=== PATIENT | male | born 1950 | race Caucasian/White ===

== ENCOUNTER → 2018-04-24 09:40 | Outpatient (CLI) | payer OTHER, MEDICARE, SELFPAY ==
[2018-04-24 10:34] LABS: Hematocrit 35.1 % (41-53)
[2018-04-24 12:36] LABS: 585 Gram Check PASS; Dizziness NO; Postdiastolic BP 81; Postsystolic BP 135; Prediastolic 83; Presystolic 140; Pulse 99; Site of phlebotomy RIGHT FOREARM; Swelling NO; Therapeutic Phleb Comment NO COMMENT; Zero Check Sebra Scale PASS
== END ==
PROVIDERS: PCP Internal Medicine; Visit Provider Internal Medicine
DX: E83.118 Other hemochromatosis (principal); D56.1 Beta thalassemia
CPT/HCPCS: 36415; 82728; 85014; 99195

== ENCOUNTER → 2018-05-27 09:49 | Outpatient (CLI) | payer OTHER, MEDICARE, SELFPAY ==
[2018-05-27 10:06] LABS: Hematocrit 35.9 % (41-53)
[2018-05-27 12:24] LABS: 585 Gram Check PASS; Amount Collected in g 205mL; Dizziness NO; Postdiastolic BP 84; Postsystolic BP 129; Prediastolic 78; Presystolic 134; Pulse 92; Site of phlebotomy LEFT FOREARM; Swelling NO; Therapeutic Phleb Comment NO COMMENT; Zero Check Sebra Scale PASS
== END ==
PROVIDERS: PCP Internal Medicine; Visit Provider Internal Medicine
DX: D56.1 Beta thalassemia (principal)
CPT/HCPCS: 36415; 82728; 85014; 99195

== ENCOUNTER → 2018-06-24 09:54 | Outpatient (CLI) | payer OTHER, MEDICARE, SELFPAY ==
[2018-06-24 10:17] LABS: Hematocrit 36.2 % (41-53)
[2018-06-24 12:40] LABS: 585 Gram Check PASS; Dizziness NO; Postdiastolic BP 81; Postsystolic BP 131; Prediastolic 82; Presystolic 132; Pulse 79; Site of phlebotomy RIGHT FOREARM; Swelling NO; Therapeutic Phleb Comment NO COMMENT; Zero Check Sebra Scale PASS
== END ==
PROVIDERS: PCP Internal Medicine; Visit Provider Internal Medicine
DX: E83.118 Other hemochromatosis (principal); F32.9 Major depressive disorder, single episode, unspecified; T86.5 Complications of stem cell transplant; C81.98 Hodgkin lymphoma, unspecified, lymph nodes of multiple sites; B20 Human immunodeficiency virus [HIV] disease; F33.0 Major depressive disorder, recurrent, mild; Z72.0 Tobacco use
CPT/HCPCS: 36415; 82728; 85014; 99195

== ENCOUNTER → 2018-07-08 09:50 | Outpatient (CLI) | payer OTHER, MEDICARE, SELFPAY ==
[2018-07-08 10:08] LABS: Hematocrit 36.7 % (41-53)
[2018-07-08 11:46] LABS: 585 Gram Check PASS; Amount Collected in g 220mL; Dizziness NO; Postdiastolic BP 87; Postsystolic BP 135; Prediastolic 80; Presystolic 143; Pulse 87; Site of phlebotomy RIGHT ARM; Swelling NO; Therapeutic Phleb Comment NO COMMENT; Zero Check Sebra Scale PASS
== END ==
PROVIDERS: PCP Internal Medicine; Visit Provider Internal Medicine
DX: E83.111 Hemochromatosis due to repeated red blood cell transfusions (principal)
CPT/HCPCS: 36415; 82728; 85014; 99195

== ENCOUNTER → 2018-07-23 09:39 | Outpatient (CLI) | payer OTHER, MEDICARE, SELFPAY ==
[2018-07-23 10:11] LABS: Hematocrit 35.7 % (41-53)
[2018-07-23 10:49] LABS: 585 Gram Check PASS; Dizziness NO; Postdiastolic BP 73; Postsystolic BP 108; Prediastolic 72; Presystolic 108; Pulse 96; Site of phlebotomy RIGHT FOREARM; Swelling NO; Therapeutic Phleb Comment NO COMMENT; Zero Check Sebra Scale PASS
== END ==
PROVIDERS: PCP Internal Medicine; Visit Provider Internal Medicine
DX: E83.19 Other disorders of iron metabolism (principal)
CPT/HCPCS: 36415; 82728; 85014; 99195

== ENCOUNTER → 2018-08-06 12:53 | Outpatient (CLI) | payer OTHER, SELFPAY ==
[2018-08-06 13:15] LABS: Hematocrit 33.1 % (41-53)
[2018-08-06 14:02] LABS: 585 Gram Check PASS; Dizziness NO; Postdiastolic BP 71; Postsystolic BP 112; Prediastolic 71; Presystolic 110; Pulse 94; Site of phlebotomy RIGHT FOREARM; Swelling NO; Therapeutic Phleb Comment NO COMMENT; Zero Check Sebra Scale PASS
== END ==
PROVIDERS: PCP Internal Medicine; Visit Provider Internal Medicine
DX: F32.9 Major depressive disorder, single episode, unspecified (principal); E83.118 Other hemochromatosis; T86.5 Complications of stem cell transplant; C81.98 Hodgkin lymphoma, unspecified, lymph nodes of multiple sites; B20 Human immunodeficiency virus [HIV] disease; F33.0 Major depressive disorder, recurrent, mild; Z72.0 Tobacco use
CPT/HCPCS: 36415; 82728; 85014; 99195

== ENCOUNTER → 2018-08-20 09:45 | Outpatient (CLI) | payer OTHER, SELFPAY ==
[2018-08-20 10:24] LABS: Hematocrit 34.2 % (41-53)
[2018-08-20 11:05] LABS: 585 Gram Check PASS; Prediastolic 75; Presystolic 110; Pulse 96; Site of phlebotomy RIGHT FOREARM; Zero Check Sebra Scale PASS
[2018-08-20 11:06] LABS: Dizziness NO; Postdiastolic BP 76; Postsystolic BP 119; Swelling NO; Therapeutic Phleb Comment NO COMMENT
== END ==
PROVIDERS: PCP Internal Medicine; Visit Provider Internal Medicine
DX: D56.1 Beta thalassemia (principal)
CPT/HCPCS: 36415; 82728; 85014; 99195

== ENCOUNTER → 2018-09-03 12:40 | Outpatient (CLI) | payer OTHER, SELFPAY ==
[2018-09-03 13:17] LABS: Hematocrit 32.9 % (41-53)
[2018-09-03 13:45] LABS: 585 Gram Check PASS; Dizziness NO; Postdiastolic BP 79; Postsystolic BP 126; Prediastolic 78; Presystolic 127; Pulse 77; Site of phlebotomy RIGHT FOREARM; Swelling NO; Therapeutic Phleb Comment NO COMMENT; Zero Check Sebra Scale PASS
== END ==
PROVIDERS: PCP Internal Medicine; Visit Provider Internal Medicine
DX: D56.1 Beta thalassemia (principal)
CPT/HCPCS: 36415; 82728; 85014; 99195

== ENCOUNTER → 2018-09-17 12:41 | Outpatient (CLI) | payer OTHER, MEDICARE, SELFPAY ==
[2018-09-17 13:43] LABS: 585 Gram Check PASS; Zero Check Sebra Scale PASS
[2018-09-17 13:44] LABS: Dizziness NO; Postdiastolic BP 95; Postsystolic BP 135; Prediastolic 79; Presystolic 132; Pulse 80; Site of phlebotomy RIGHT FOREARM; Swelling NO; Therapeutic Phleb Comment NO COMMENT
== END ==
PROVIDERS: PCP Internal Medicine; Visit Provider Internal Medicine
DX: Z51.81 Encounter for therapeutic drug level monitoring (principal)
CPT/HCPCS: 36415; 82728; 85014; 99195

== ENCOUNTER → 2018-10-08 12:49 | Outpatient (CLI) | payer OTHER, MEDICARE, SELFPAY ==
[2018-10-08 13:29] LABS: 585 Gram Check PASS; Prediastolic 82; Presystolic 149; Pulse 80; Zero Check Sebra Scale PASS
[2018-10-08 13:30] LABS: Dizziness NO; Postdiastolic BP 82; Postsystolic BP 129; Site of phlebotomy RIGHT ARM; Swelling NO; Therapeutic Phleb Comment NO COMMENT
[2018-10-08 13:38] LABS: Hematocrit 32.2 % (41-53)
== END ==
PROVIDERS: PCP Internal Medicine; Visit Provider Internal Medicine
DX: D56.1 Beta thalassemia (principal)
CPT/HCPCS: 36415; 82728; 85014; 99195

== ENCOUNTER 2021-04-11 11:16 | Emergency (ER) | payer OTHER, SELFPAY ==
[2021-04-11 11:35] VITALS: BP 106/49; PULSE 117; RESP 18; TEMP 37.1; O2SAT 97; BMI 18.0
[2021-04-11 12:51] LABS: INR 1.3 (0.9-1.3); Prothrombin Time 14.3 SECONDS (10.1-12.7)
[2021-04-11 12:52] LABS: Hematocrit 26.6 % (41-53); Hemoglobin 8.3 g/dL (13.5-17.5); Mean Corpuscular HGB Conc 31.2 % (30-36); Mean Corpuscular Hemoglobin 23.4 PG (26-34); Mean Corpuscular Volume 74.9 fL (80-100); Red Blood Cell Count 3.55 X10^6/uL (4.5-5.9); Red Cell Distribution Width 21.2 % (11.6-14.8)
[2021-04-11 12:54] LABS: PTT Partial Thromboplastin Tim 26 SECONDS (26.4-36.2)
[2021-04-11 13:00] LABS: Alanine Aminotransferase 46 IU/L (<50); Albumin 3.4 g/dL (3.5-5.0); Albumin Globulin Ratio 1.1 (1.0-2.8); Alkaline Phosphatase 276 U/L (38-126); Aspartate Aminotransferase 44 IU/L (17-59); Bilirubin Total 1.5 mg/dL (0.2-1.3); Blood Urea Nitrogen 30 mg/dL (9-20); Calcium 8.7 mg/dL (8.4-10.2); Carbon Dioxide 19 mmol/L (22-32); Chloride 103 mmol/L (98-107); Estimated Glomerular Filt Rate 48.9 mL/min (>60); Globulin 3.2 g/dL (1.7-4.1); Glucose 106 mg/dL (80-110); HEMOLYSIS < 15 (0-50); Lipase 47 U/L (23-300); Sodium 136 mmol/L (137-145); Total Protein 6.6 g/dL (6.3-8.2)
[2021-04-11 13:08] LABS: Potassium 2.6 mmol/L (3.4-5.1)
[2021-04-11 13:11] LABS: Add Manual Diff / Slide Review NO; Basophils Percent Auto 0.4 % (0-2); Eosinophils Percent Auto 0.5 % (2-4); Lymphocytes Percent Auto 14.2 % (25-40); Monocytes Percent Auto 11.4 % (3-14); Neutrophils Percent Auto 73.5 % (50-75)
[2021-04-11 13:12] LABS: Basophils Absolute Auto 400 /uL (0-100); Eosinophils Absolute Auto 500 /uL (0-450); Lymphocytes Absolute Auto 1400 /uL (1100-4500); Monocytes Absolute Auto 1100 /uL (0-900); Neutrophils Absolute Auto 7300 /uL (1500-7000)
[2021-04-11 13:22] LABS: Amylase 59 U/L (30-110); Magnesium 1.8 mg/dL (1.6-2.3)
[2021-04-11 13:25] LABS: Anisocytosis 2+; Hypochromasia 1+; Microcytosis 2+; Ovalocytes 1+; Platelet Estimate Decreased on smear; Poikilocytosis 1+; Polychromasia 1+
[2021-04-11 13:33] LABS: D Dimer 2546 ng/mL (<230)
--- NOTE | 2021-04-11 14:00 | DI.CT.S_ITS ---
PROCEDURE: CT ANGIO CHEST PE PROTOCOL INDICATIONS: + ddimer, tachy, recent hosp stay TECHNIQUE: After the administration of intravenous contrast, 2 mm thick sections acquired from the pulmonary apices to the posterior costophrenic angles. 3-dimensional maximum intensity projection (MIP) coronal and sagittal reformats were then acquired through the thorax. For radiation dose reduction, the following was used: automated exposure control, adjustment of mA and/or kV according to patient size. COMPARISON: [facility], CT, CT ABDOMEN PELVIS W CON, 04/11/2021, 14:13. FINDINGS: Image quality: Excellent. Pulmonary arteries: Pulmonary arteries are normal in size, and demonstrate no intraluminal filling defects to suggest central pulmonary embolism. Lungs and pleura: Diffuse bilateral changes of pulmonary fibrosis. Findings are most pronounced in the extreme right lung base, where there is prominent planning going. No pleural effusions or pneumothorax. Central and peripheral airways are patent. Mediastinum: Heart size is normal, without pericardial effusion. Advanced coronary artery calcifications. Right hilar and mediastinal adenopathy is suspicious for possible malignancy. Findings include a right hilar lymph node on image 78/4 which measures 2.7 x 1.7 cm. A subcarinal lymph node on image 80/4 measures 2.8 x 2.0 cm. A precarinal lymph node on image 71/4 measures 1.8 x 1.5 cm. A right paratracheal lymph node on image 55/4 measures 1.6 x 1.5 cm. Thoracic aorta is normal in caliber and enhancement. There is diffuse thickening over a long segment of the esophagus involving the mid 3rd and lower 3rd of the esophagus. Consider superficial spreading esophageal carcinoma versus diffuse esophagitis. Bones and chest wall: No suspicious bony lesions. Ribs and thoracic spine appear intact throughout. Thyroid gland is small. No axillary or supraclavicular adenopathy. Abdomen: Upper abdominal structures demonstrate a question of cirrhotic change in the liver. There is a question of surface nodularity. There are multiple noncalcified gallstones. The gallbladder wall is not thickened. The spleen is definitely enlarged. Please see a separate report for findings in the abdomen and pelvis. IMPRESSION: 1. No evidence acute pulmonary emboli. 2. Diffuse pulmonary fibrosis. 3. Right hilar and mediastinal lymphadenopathy. Consider possible malignant adenopathy. 4. Diffuse circumferential wall thickening of the mid through distal esophagus. Differential diagnosis includes diffuse esophagitis versus superficial spreading esophageal carcinoma. 5. Advanced coronary artery calcifications. 6. Question cirrhosis. 7. Cholelithiasis. 8. Splenomegaly. Dictated by: Felice Sewell M.D. on 04/11/2021 at 14:38 Approved by: Felice Sewell M.D. on 04/11/2021 at 14:46
--- NOTE | 2021-04-11 14:01 | DI.CT.S_ITS ---
PROCEDURE: CT ABDOMEN PELVIS W CON INDICATIONS: abd pain TECHNIQUE: After the administration of intravenous contrast, 5 mm thick sections acquired from the diaphragm to the symphysis. 5 mm coronal and sagittal reformats were acquired. For radiation dose reduction, the following was used: automated exposure control, adjustment of mA and/or kV according to patient size. COMPARISON: [facility], CT, CT ANGIO CHEST PE PROTOCOL, 04/11/2021, 14:13. FINDINGS: Image quality: Excellent. ABDOMEN: Lung bases: Bibasilar pulmonary fibrosis, right greater than left. Heart size is normal. Diffuse distal esophageal wall thickening. Solid organs: Question surface nodularity of the liver. Question cirrhotic change. No focal liver mass. Gallbladder is mildly distended. There are tiny gallstones in the gallbladder. No gallbladder wall thickening. Biliary system is non dilated. Pancreas enhances normally. Spleen is quite enlarged, measuring 7.8 cm in craniocaudal dimension. MR. No adrenal nodules. Kidneys demonstrate normal size and enhancement, without hydronephrosis. Peritoneum and bowel: Surgical clips are noted in the region of the cecum. There are 3 focal areas of luminal narrowing in the ascending colon. These may all represent areas of peristalsis. Bowel is otherwise normal in caliber. No free fluid or air. Nodes and vessels: No retroperitoneal or mesenteric adenopathy by size criteria. Shotty periaortic lymph nodes are most likely inflammatory in nature. However, they occur in a patient with significant mediastinal adenopathy. Mild aneurysmal dilatation of the infrarenal abdominal aorta, measuring 3.2 cm. Mild plaque. 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 Miscellaneous: Fat containing ventral hernia, with an abdominal wall defect measuring 3.2 cm. PELVIS: Genitourinary: Bladder wall thickness is normal. Miscellaneous: Small fat containing left inguinal hernia. No inguinal adenopathy. Bones: No suspicious bony lesions. No vertebral body compression fractures. IMPRESSION: 1. There is diffuse thickening of the wall of the distal esophagus. CT angiogram of the chest demonstrates diffuse wall thickening extending to involve the middle 3rd of the esophagus as well. Recommend direct visualization for further evaluation. 2. Question cirrhotic liver. 3. Splenomegaly. 4. Bibasilar pulmonary fibrosis. 5. Mild abdominal aortic aneurysm. Question SMA stenosis. 6. Ventral abdominal wall hernia, small left inguinal hernia. 7. 3 focal areas of narrowing of the ascending colon may represent areas of peristalsis. However, if the patient has not had recent colonoscopy, recommend direct visualization with colonoscopy. A Dictated by: Felice Sewell M.D. on 04/11/2021 at 14:51 Approved by: Felice Sewell M.D. on 04/11/2021 at 15:01
[2021-04-11] MEDS: POTASSIUM CHLORIDE IN WATER 10 MEQ/100 ML PIGGYBACK 100 MEQ IV ×4 (14:10→17:37)
[2021-04-11 14:11] VITALS: BP 110/53; PULSE 111; RESP 28; O2SAT 98
--- NOTE | 2021-04-11 14:54 | ED.ABDPAIN ---
HPI - Abdominal Pain <JANICE Mack - Last Filed: 04/11/21 20:07> General Chief Complaint: Abdominal Pain Stated Complaint: Abdominal Pain Time Seen by Provider: 04/11/21 12:11 Source: EMS Mode of arrival: EMS History of Present Illness HPI narrative: The patient is a 71-year-old male with a history of orthostatic hypotension, adrenal insufficiency, non-Hodgkin's lymphoma, paroxysmal atrial fibrillation and flutter, severe malnutrition, anemia and HIV infection who presents with a chief complaint of right upper quadrant pain that started last night. He also has history of thalassemia, esophagitis, esophageal ulcer, hiatal hernia, pancytopenia. His primary care provider is with the [facility] in [place]. He was discharged from [facility] on the 03/28. He was transferred to [facility] from [facility] on 03/01, where he presented on 02/24. The patient presents to the emergency department with fecal matter on his fingers and in his blankets. His caregiver later comes to the emergency department who states that he has been without his potassium that he takes 3 times a day for several weeks due to the recent holiday. He denies any abdominal surgeries other than a lymph node surgery in his lower abdomen several years ago. Denies any fevers muscle aches or chills. Related Data Previous Rx's Medication Instructions Recorded hydrocodone-acetaminophen 1 tab PO Q4-6H PRN #10 tab 04/11/21 ondansetron 4 mg PO Q6H PRN #20 tab 04/11/21 potassium chloride 40 meq PO DAILY 7 Days #14 tab 04/11/21 zinc oxide [[employer]reauxs Butt Paste] 1 applic TOPICAL 4-6XD PRN #56 g 04/11/21 Allergies Allergy/AdvReac Type Severity Reaction Status Date / Time No Known Drug Allergies Allergy Verified 04/11/21 11:35 Review of Systems <JANICE Mack - Last Filed: 04/11/21 20:07> Review of Systems Narrative: GENERAL: Denies chills, fatigue, malaise, fever, sweats. HEENT: Denies sinus pain, ear pain, sore throat, difficulty swallowing, dizziness. RESPIRATORY: Denies dyspnea, cough, wheezing, hemoptysis, sputum. CARDIOVASCULAR: Denies chest pain, palpitations, orthopnea, edema, GASTROINTESTINAL: See HPI : See HPI MUSCULOSKELETAL: denies weakness, joint pain, or bony pain SKIN: Denies rash, skin lesions, or other NEUROLOGIC: Denies weakness, headache, numbness, change in speech, confusion, seizures, incoordination. PSYCHIATRIC: See HPI 12 point review of systems is negative except for those stated above Patient History <Kristy SnyderCHRISTIN scott- - Last Filed: 04/11/21 20:07> Social History Smoking Status: Unknown if ever smoked Smoking Status: Unknown if ever smoked Substance Use Type: does not use Exam <Kristy Snydertyler [facility] - Last Filed: 04/11/21 20:07> Narrative Exam Narrative: GENERAL: Cachectic male lying on stretcher HEAD: Atraumatic. Normocephalic. No temporal or scalp tenderness. EYES: Pupils equal round and reactive. Extraocular motions intact. No scleral icterus. No injection or drainage. ENT: Nose without bleeding, purulent drainage or septal hematoma. Throat without erythema, tonsillar hypertrophy or exudate. Uvula midline. Airway patent. NECK: Trachea midline. No JVD or lymphadenopathy. Supple, nontender, no meningeal signs. CARDIOVASCULAR: Regular rate and rhythm RESPIRATORY: Course sounds equal bilaterally. No wheezes, rales, or rhonchi. Course sounding cough. GASTROINTESTINAL: Abdomen soft, right upper quadrant tenderness to palpation, active bowel sounds, nondistended. No palpable masses. No guarding. EXTREMITIES: No clubbing, cyanosis, or edema. No joint tenderness, effusion, or edema noted. BACK: Nontender without deformity or crepitance. No flank tenderness. NEURO: AOx3. Interactive. Clear speech. SKIN: Skin breakdown noted on coccyx extending from rectum to sacrum Initial Vital Signs Initial Vital Signs: Vital Signs Temperature 98.7 F 04/11/21 11:35 Pulse Rate 117 H 04/11/21 11:35 Respiratory Rate 18 04/11/21 11:35 Blood Pressure 106/49 L 04/11/21 11:35 Pulse Oximetry 97 04/11/21 11:35 <Sujit Corley DO - Last Filed: 04/11/21 20:08> Initial Vital Signs Initial Vital Signs: Vital Signs Temperature 98.7 F 04/11/21 11:35 Pulse Rate 117 H 04/11/21 11:35 Respiratory Rate 18 04/11/21 11:35 Blood Pressure 106/49 L 04/11/21 11:35 Pulse Oximetry 97 04/11/21 11:35 Scores <JANICE Mack - Last Filed: 04/11/21 20:07> GCS Grant coma scale eye opening: Spontaneous Grant coma scale verbal response: Orientated Gay coma scale motor response: Obey commands Gay coma scale total score: 15 PERC Score Age greater than or equal to 50 years: Yes Heart rate greater than or equal to 100 bpm: Yes Room Air O2 Sat less than 95%: No Unilateral leg swelling: No Recent trauma or surgery: No Hemoptysis: No Prior PE or DVT: No Hormone Use: No Total PERC Score: 2 Course <JANICE Mack - Last Filed: 04/11/21 20:07> Orders Ordered: ED Orders 04/11/21 12:35 Amylase Stat Complete Blood Count AUTO DIFF Stat Comprehensive Metabolic Panel Stat D Dimer Stat Lipase Stat Magnesium Stat Partial Thromboplastin Time Stat Prothrombin Time INR Stat 04/11/21 14:00 CT angio chest PE protocol Stat 04/11/21 14:01 CT abdomen pelvis w con Stat 04/11/21 14:07 COVID19 - ADMIT (HVAC/R INSTRUCTOR swab/PCR) Stat 04/11/21 15:27 US abdomen limited Stat Discontinued Medications Hydrocodone Bitart/Acetaminophen (Hydrocodone/Acet 5/325 Tablet) 1 tab PO NOW ONE Stop: 04/11/21 18:18 Last Admin: 04/11/21 19:07 Dose: 1 tab Documented by: ATAYLOR POTASSIUM CHLORIDE IN WATER (Potassium Cl 10 Meq/100 Ml Rachael) 10 meq in 100 mls @ 100 mls/hr IV Q1H VIVEK Stop: 04/11/21 17:29 Last Infusion: 04/11/21 18:40 Dose: 0 mls/hr Documented by: Admin: 04/11/21 17:37 Dose: 100 mls/hr Documented by: Infusion: 04/11/21 17:31 Dose: 0 mls/hr Documented by: Admin: 04/11/21 16:56 Dose: 100 mls/hr Documented by: Infusion: 04/11/21 16:20 Dose: 100 mls/hr Documented by: Admin: 04/11/21 15:20 Dose: 100 mls/hr Documented by: Infusion: 04/11/21 15:20 Dose: 0 mls/hr Documented by: Admin: 04/11/21 14:10 Dose: 100 mls/hr Documented by: RIDGE Sodium Chloride (Normal Saline 0.9%) 1,000 mls @ 1,000 mls/hr IV BOLUS ONE Stop: 04/11/21 18:30 Last Infusion: 04/11/21 19:03 Dose: 0 mls/hr Documented by: Admin: 04/11/21 17:37 Dose: 1,000 mls/hr Documented by: ANDREWS Ondansetron HCl (Ondansetron 4 Mg Odt) 4 mg SL NOW ONE Stop: 04/11/21 18:18 Last Admin: 04/11/21 19:08 Dose: 4 mg Documented by: RIDGE Potassium Chloride (Potassium Chloride 20 Meq Tab) 40 meq PO NOW ONE Stop: 04/11/21 16:39 Last Admin: 04/11/21 17:37 Dose: 40 meq Documented by: ANDREWS Vital Signs Vital signs: Vital Signs - 8 hr 04/11/21 14:11 04/11/21 15:25 04/11/21 17:43 Pulse Rate 111 H 102 H 111 H Respiratory Rate 28 H 30 H 18 Blood Pressure 110/53 L 109/56 L 141/58 H Pulse Oximetry 98 98 97 04/11/21 19:04 Pulse Rate 106 H Respiratory Rate 18 Blood Pressure 120/56 L Pulse Oximetry 99 <Sujit Corley DO - Last Filed: 04/11/21 20:08> Orders Ordered: ED Orders 04/11/21 12:35 Amylase Stat Complete Blood Count AUTO DIFF Stat Comprehensive Metabolic Panel Stat D Dimer Stat Lipase Stat Magnesium Stat Partial Thromboplastin Time Stat Prothrombin Time INR Stat 04/11/21 14:00 CT angio chest PE protocol Stat 04/11/21 14:01 CT abdomen pelvis w con Stat 04/11/21 14:07 COVID19 - ADMIT (HVAC/R INSTRUCTOR swab/PCR) Stat 04/11/21 15:27 US abdomen limited Stat Discontinued Medications Hydrocodone Bitart/Acetaminophen (Hydrocodone/Acet 5/325 Tablet) 1 tab PO NOW ONE Stop: 04/11/21 18:18 Last Admin: 04/11/21 19:07 Dose: 1 tab Documented by: RIDGE POTASSIUM CHLORIDE IN WATER (Potassium Cl 10 Meq/100 Ml Rachael) 10 meq in 100 mls @ 100 mls/hr IV Q1H VIVEK Stop: 04/11/21 17:29 Last Infusion: 04/11/21 18:40 Dose: 0 mls/hr Documented by: Admin: 04/11/21 17:37 Dose: 100 mls/hr Documented by: Infusion: 04/11/21 17:31 Dose: 0 mls/hr Documented by: Admin: 04/11/21 16:56 Dose: 100 mls/hr Documented by: Infusion: 04/11/21 16:20 Dose: 100 mls/hr Documented by: Admin: 04/11/21 15:20 Dose: 100 mls/hr Documented by: Infusion: 04/11/21 15:20 Dose: 0 mls/hr Documented by: Admin: 04/11/21 14:10 Dose: 100 mls/hr Documented by: RIDGE Sodium Chloride (Normal Saline 0.9%) 1,000 mls @ 1,000 mls/hr IV BOLUS ONE Stop: 04/11/21 18:30 Last Infusion: 04/11/21 19:03 Dose: 0 mls/hr Documented by: Admin: 04/11/21 17:37 Dose: 1,000 mls/hr Documented by: ANDREWS Ondansetron HCl (Ondansetron 4 Mg Odt) 4 mg SL NOW ONE Stop: 04/11/21 18:18 Last Admin: 04/11/21 19:08 Dose: 4 mg Documented by: RIDGE Potassium Chloride (Potassium Chloride 20 Meq Tab) 40 meq PO NOW ONE Stop: 04/11/21 16:39 Last Admin: 04/11/21 17:37 Dose: 40 meq Documented by: ANDREWS Vital Signs Vital signs: Vital Signs - 8 hr 04/11/21 14:11 04/11/21 15:25 04/11/21 17:43 Pulse Rate 111 H 102 H 111 H Respiratory Rate 28 H 30 H 18 Blood Pressure 110/53 L 109/56 L 141/58 H Pulse Oximetry 98 98 97 04/11/21 19:04 Pulse Rate 106 H Respiratory Rate 18 Blood Pressure 120/56 L Pulse Oximetry 99 MDM - Abdominal Pain <Kristy Rios, RESEARCH PROFESSOR OF BIOSTATISTICS-BC - Last Filed: 04/11/21 20:07> Medical Records Attestation: I reviewed the patient's medical records. Medical records narrative: Records obtained from [facility] Lab Data Attestation: I reviewed the patient's lab results. Result diagrams: 04/11/21 12:35 04/11/21 12:35 Labs: Lab Results 04/11/21 04/11/21 04/11/21 Range/Units 12:35 12:35 12:35 WBC 10.0 (4.5-11.0) X10^3/uL RBC 3.55 L (4.5-5.9) X10^6/uL Hgb 8.3 L (13.5-17.5) g/dL Hct 26.6 L (41-53) % MCV 74.9 L (80-100) fL MCH 23.4 L (26-34) PG MCHC 31.2 (30-36) % RDW 21.2 H (11.6-14.8) % Plt Count TNP Neut % (Auto) 73.5 (50-75) % Lymph % (Auto) 14.2 L (25-40) % Bertie % (Auto) 11.4 (3-14) % Eos % (Auto) 0.5 L (2-4) % Baso % (Auto) 0.4 (0-2) % Neut # (Auto) 7300 H (2572-5290) /uL Lymph # (Auto) 1400 (1357-7770) /uL Bertie # (Auto) 1100 H (0-900) /uL Eos # (Auto) 500 H (0-450) /uL Baso # (Auto) 400 H (0-100) /uL Total Counted Cancelled Seg Neutrophils % Cancelled Band Neutrophils % Cancelled Lymphocytes % (Manual) Cancelled Atypical Lymphs % Cancelled Monocytes % (Manual) Cancelled Eosinophils % (Manual) Cancelled Basophils % (Manual) Cancelled Metamyelocytes % Cancelled Myelocytes % Cancelled Promyelocytes % Cancelled Blast Cells % Cancelled Neutrophils # (Manual) Cancelled Differential Comment Cancelled Plasma Cells Cancelled Platelet Estimate Decreased on smear RBC Morphology See below Polychromasia 1+ H Hypochromasia 1+ H Poikilocytosis 1+ H Anisocytosis 2+ H Microcytosis 2+ H Ovalocytes 1+ H PT 14.3 H (10.1-12.7) SECONDS INR 1.3 (0.9-1.3) APTT 26 L (26.4-36.2) SECONDS D-Dimer (<230) ng/mL Sodium 136 L (137-145) mmol/L Potassium 2.6 L* (3.4-5.1) mmol/L Chloride 103 (98-107) mmol/L Carbon Dioxide 19 L (22-32) mmol/L BUN 30 H (9-20) mg/dL Creatinine 1.43 H (0.66-1.25) mg/dL Estimated GFR 48.9 L (>60) mL/min BUN/Creatinine Ratio 21.0 (6-22) Glucose 106 (80-110) mg/dL Calcium 8.7 (8.4-10.2) mg/dL Magnesium (1.6-2.3) mg/dL Total Bilirubin 1.5 H (0.2-1.3) mg/dL AST 44 (17-59) IU/L ALT 46 (<50) IU/L Alkaline Phosphatase 276 H (38-126) U/L Total Protein 6.6 (6.3-8.2) g/dL Albumin 3.4 L (3.5-5.0) g/dL Globulin 3.2 (1.7-4.1) g/dL Albumin/Globulin Ratio 1.1 (1.0-2.8) Amylase (30-110) U/L Lipase 47 (23-300) U/L SARS-CoV-2 (PCR) (Negative) 04/11/21 04/11/21 04/11/21 Range/Units 12:35 12:35 12:35 WBC (4.5-11.0) X10^3/uL RBC (4.5-5.9) X10^6/uL Hgb (13.5-17.5) g/dL Hct (41-53) % MCV (80-100) fL MCH (26-34) PG MCHC (30-36) % RDW (11.6-14.8) % Plt Count Neut % (Auto) (50-75) % Lymph % (Auto) (25-40) % Bertie % (Auto) (3-14) % Eos % (Auto) (2-4) % Baso % (Auto) (0-2) % Neut # (Auto) (9651-5627) /uL Lymph # (Auto) (8116-6960) /uL Bertie # (Auto) (0-900) /uL Eos # (Auto) (0-450) /uL Baso # (Auto) (0-100) /uL Total Counted Seg Neutrophils % Band Neutrophils % Lymphocytes % (Manual) Atypical Lymphs % Monocytes % (Manual) Eosinophils % (Manual) Basophils % (Manual) Metamyelocytes % Myelocytes % Promyelocytes % Blast Cells % Neutrophils # (Manual) Differential Comment Plasma Cells Platelet Estimate RBC Morphology Polychromasia Hypochromasia Poikilocytosis Anisocytosis Microcytosis Ovalocytes PT (10.1-12.7) SECONDS INR (0.9-1.3) APTT (26.4-36.2) SECONDS D-Dimer 2546 H (<230) ng/mL Sodium (137-145) mmol/L Potassium (3.4-5.1) mmol/L Chloride (98-107) mmol/L Carbon Dioxide (22-32) mmol/L BUN (9-20) mg/dL Creatinine (0.66-1.25) mg/dL Estimated GFR (>60) mL/min BUN/Creatinine Ratio (6-22) Glucose (80-110) mg/dL Calcium (8.4-10.2) mg/dL Magnesium 1.8 (1.6-2.3) mg/dL Total Bilirubin (0.2-1.3) mg/dL AST (17-59) IU/L ALT (<50) IU/L Alkaline Phosphatase (38-126) U/L Total Protein (6.3-8.2) g/dL Albumin (3.5-5.0) g/dL Globulin (1.7-4.1) g/dL Albumin/Globulin Ratio (1.0-2.8) Amylase 59 (30-110) U/L Lipase (23-300) U/L SARS-CoV-2 (PCR) (Negative) 04/11/21 Range/Units 14:07 WBC (4.5-11.0) X10^3/uL RBC (4.5-5.9) X10^6/uL Hgb (13.5-17.5) g/dL Hct (41-53) % MCV (80-100) fL MCH (26-34) PG MCHC (30-36) % RDW (11.6-14.8) % Plt Count Neut % (Auto) (50-75) % Lymph % (Auto) (25-40) % Bertie % (Auto) (3-14) % Eos % (Auto) (2-4) % Baso % (Auto) (0-2) % Neut # (Auto) (3628-5233) /uL Lymph # (Auto) (0709-1633) /uL Bertie # (Auto) (0-900) /uL Eos # (Auto) (0-450) /uL Baso # (Auto) (0-100) /uL Total Counted Seg Neutrophils % Band Neutrophils % Lymphocytes % (Manual) Atypical Lymphs % Monocytes % (Manual) Eosinophils % (Manual) Basophils % (Manual) Metamyelocytes % Myelocytes % Promyelocytes % Blast Cells % Neutrophils # (Manual) Differential Comment Plasma Cells Platelet Estimate RBC Morphology Polychromasia Hypochromasia Poikilocytosis Anisocytosis Microcytosis Ovalocytes PT (10.1-12.7) SECONDS INR (0.9-1.3) APTT (26.4-36.2) SECONDS D-Dimer (<230) ng/mL Sodium (137-145) mmol/L Potassium (3.4-5.1) mmol/L Chloride (98-107) mmol/L Carbon Dioxide (22-32) mmol/L BUN (9-20) mg/dL Creatinine (0.66-1.25) mg/dL Estimated GFR (>60) mL/min BUN/Creatinine Ratio (6-22) Glucose (80-110) mg/dL Calcium (8.4-10.2) mg/dL Magnesium (1.6-2.3) mg/dL Total Bilirubin (0.2-1.3) mg/dL AST (17-59) IU/L ALT (<50) IU/L Alkaline Phosphatase (38-126) U/L Total Protein (6.3-8.2) g/dL Albumin (3.5-5.0) g/dL Globulin (1.7-4.1) g/dL Albumin/Globulin Ratio (1.0-2.8) Amylase (30-110) U/L Lipase (23-300) U/L SARS-CoV-2 (PCR) Negative (Negative) Imaging Data US - abdomen: Radiologist's Impression: [address] [place] [id number] ReportSigned Patient: Carmelo Calvillo R#: [id number]: [id number]:[id number]/Sex: 71 / MDate of Service: 04/11/21Lo: EDAccession Number: [id number] Procedure: US abdomen limited Ordering Provider: Kristy Rios-JERARDO PROCEDURE: US ABDOMEN LIMITED INDICATIONS: RIGHT UPPER QUADRANT PAIN. GALLSTONES. TECHNIQUE: Real-time focused scanning was performed of the abdomen, with image documentation. COMPARISON: [facility], CT, CT ABDOMEN PELVIS W CON, 04/11/2021, 14:13. FINDINGS: There multiple mobile gallstones in the gallbladder. There is no gallbladder wall thickening or fluid around the gallbladder or pain on examination. There is gallbladder distention. No dilated ducts. Common hepatic duct measures 1.9 mm. IMPRESSION: Cholelithiasis without evidence of acute cholecystitis. Dictated by: Felice Sewell M.D. on 04/11/2021 at 16:25 Approved by: Felice Sewell M.D. on 04/11/2021 at 16:27 CT scan - abdomen/pelvis: Radiologist's Impression: [address] [place] [id number] Scan ReportSigned Patient: Carmelo Calvillo RMR#: [id number]: [id number]:[id number]/Sex: 71 / MDate of Service: 04/11/21Loc: EDAccession Number: [id number] Procedure: CT abdomen pelvis w con Ordering Provider: Kristy Rios-BC PROCEDURE: CT ABDOMEN PELVIS W CON INDICATIONS: abd pain TECHNIQUE: After the administration of intravenous contrast, 5 mm thick sections acquired from the diaphragm to the symphysis. 5 mm coronal and sagittal reformats were acquired. For radiation dose reduction, the following was used: automated exposure control, adjustment of mA and/or kV according to patient size. COMPARISON: [facility], CT, CT ANGIO CHEST PE PROTOCOL, 04/11/2021, 14:13. FINDINGS: Image quality: Excellent. ABDOMEN: Lung bases: Bibasilar pulmonary fibrosis, right greater than left. Heart size is normal. Diffuse distal esophageal wall thickening. Solid organs: Question surface nodularity of the liver. Question cirrhotic change. No focal liver mass. Gallbladder is mildly distended. There are tiny gallstones in the gallbladder. No gallbladder wall thickening. Biliary system is non dilated. Pancreas enhances normally. Spleen is quite enlarged, measuring 7.8 cm in craniocaudal dimension. MR. No adrenal nodules. Kidneys demonstrate normal size and enhancement, without hydronephrosis. Peritoneum and bowel: Surgical clips are noted in the region of the cecum. There are 3 focal areas of luminal narrowing in the ascending colon. These may all represent areas of peristalsis. Bowel is otherwise normal in caliber. No free fluid or air. Nodes and vessels: No retroperitoneal or mesenteric adenopathy by size criteria. Shotty periaortic lymph nodes are most likely inflammatory in nature. However, they occur in a patient with significant mediastinal adenopathy. Mild aneurysmal dilatation of the infrarenal abdominal aorta, measuring 3.2 cm. Mild plaque. 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 Miscellaneous: Fat containing ventral hernia, with an abdominal wall defect measuring 3.2 cm. PELVIS: Genitourinary: Bladder wall thickness is normal. Miscellaneous: Small fat containing left inguinal hernia. No inguinal adenopathy. Bones: No suspicious bony lesions. No vertebral body compression fractures. IMPRESSION: 1. There is diffuse thickening of the wall of the distal esophagus. CT angiogram of the chest demonstrates diffuse wall thickening extending to involve the middle 3rd of the esophagus as well. Recommend direct visualization for further evaluation. 2. Question cirrhotic liver. 3. Splenomegaly. 4. Bibasilar pulmonary fibrosis. 5. Mild abdominal aortic aneurysm. Question SMA stenosis. 6. Ventral abdominal wall hernia, small left inguinal hernia. 7. 3 focal areas of narrowing of the ascending colon may represent areas of peristalsis. However, if the patient has not had recent colonoscopy, recommend direct visualization with colonoscopy. A Dictated by: Felice Sewell M.D. on 04/11/2021 at 14:51 Approved by: Felice Sewell M.D. on 04/11/2021 at 15:01 CT scan - chest: Radiologist's Impression: [address] [place] [id number] Scan ReportSigned Patient: Carmelo Calvillo RMR#: [id number]: [id number]:[id number]/Sex: 71 / MDate of Service: 04/11/21Loc: EDAccession Number: [id number] Procedure: CT angio chest PE protocol Ordering Provider: Kristy Rios [facility]- PROCEDURE: CT ANGIO CHEST PE PROTOCOL INDICATIONS: + ddimer, tachy, recent hosp stay TECHNIQUE: After the administration of intravenous contrast, 2 mm thick sections acquired from the pulmonary apices to the posterior costophrenic angles. 3-dimensional maximum intensity projection (MIP) coronal and sagittal reformats were then acquired through the thorax. For radiation dose reduction, the following was used: automated exposure control, adjustment of mA and/or kV according to patient size. COMPARISON: [facility], CT, CT ABDOMEN PELVIS W CON, 04/11/2021, 14:13. FINDINGS: Image quality: Excellent. Pulmonary arteries: Pulmonary arteries are normal in size, and demonstrate no intraluminal filling defects to suggest central pulmonary embolism. Lungs and pleura: Diffuse bilateral changes of pulmonary fibrosis. Findings are most pronounced in the extreme right lung base, where there is prominent planning going. No pleural effusions or pneumothorax. Central and peripheral airways are patent. Mediastinum: Heart size is normal, without pericardial effusion. Advanced coronary artery calcifications. Right hilar and mediastinal adenopathy is suspicious for possible malignancy. Findings include a right hilar lymph node on image 78/4 which measures 2.7 x 1.7 cm. A subcarinal lymph node on image 80/4 measures 2.8 x 2.0 cm. A precarinal lymph node on image 71/4 measures 1.8 x 1.5 cm. A right paratracheal lymph node on image 55/4 measures 1.6 x 1.5 cm. Thoracic aorta is normal in caliber and enhancement. There is diffuse thickening over a long segment of the esophagus involving the mid 3rd and lower 3rd of the esophagus. Consider superficial spreading esophageal carcinoma versus diffuse esophagitis. Bones and chest wall: No suspicious bony lesions. Ribs and thoracic spine appear intact throughout. Thyroid gland is small. No axillary or supraclavicular adenopathy. Abdomen: Upper abdominal structures demonstrate a question of cirrhotic change in the liver. There is a question of surface nodularity. There are multiple noncalcified gallstones. The gallbladder wall is not thickened. The spleen is definitely enlarged. Please see a separate report for findings in the abdomen and pelvis. IMPRESSION: 1. No evidence acute pulmonary emboli. 2. Diffuse pulmonary fibrosis. 3. Right hilar and mediastinal lymphadenopathy. Consider possible malignant adenopathy. 4. Diffuse circumferential wall thickening of the mid through distal esophagus. Differential diagnosis includes diffuse esophagitis versus superficial spreading esophageal carcinoma. 5. Advanced coronary artery calcifications. 6. Question cirrhosis. 7. Cholelithiasis. 8. Splenomegaly. Dictated by: Felice Sewell M.D. on 04/11/2021 at 14:38 Approved by: Felice Sewell M.D. on 04/11/2021 at 14:46 MDM Narrative Medical decision making narrative: The patient is a very medically complex 71-year-old male who presents with a chief complaint of right upper quadrant pain. He is noted to be anemic, though records were obtained from [facility] which reflect a previous hemoglobin of 8 so this is not new for him. He is noted to be hypokalemic at 2.6, though this correlates with not taking his home potassium dosage. Given his right upper quadrant pain, recent hospitalization in tachycardia, D-dimer was done which resulted positive. Thus a CT a of his chest was completed to evaluate for pulmonary embolism. This resulted negative for pulmonary embolism. However CT abdomen was concerning for gallstones. Thus ultrasound was taken to evaluate for acute cholecystitis, and this resulted negative. The patient was noted to have multiple findings on his imaging including hilar and mediastinal lymphadenopathy, possible cirrhosis, splenomegaly, small aortic aneurysm, and thickening of the esophagus, as well as basilar pulmonary fibrosis. I discussed this with the patient and his caregiver Tammy, who states that these are not new. The patient very much wants to be discharged from the hospital if possible. He states he does not want to spend his time in the hospital. Given that he has no acute findings that require intervention, I am okay with this. Regarding the patient's hyperkalemia, he was given 40 mEq IV as well as 40 p.o. which he kept down. I did give him a replacement prescription of potassium as well as pain and nausea medications regarding his gallstones. Discussed dietary changes. Discussed the patient at length with Dr Corley and reviewed images with Dr Corley is in accordance with plan of care. I discussed with the patient that he needs to follow up with primary care provider for potassium recheck, suggested follow-up in the next 48-72 hours. The patient states he does not want to come into the hospital today multiple times wanting to go home, with Eligio KENNY as a witness to that conversation. <Sujit Corley, DO - Last Filed: 04/11/21 20:08> Lab Data Labs: Lab Results 04/11/21 04/11/21 04/11/21 Range/Units 12:35 12:35 12:35 WBC 10.0 (4.5-11.0) X10^3/uL RBC 3.55 L (4.5-5.9) X10^6/uL Hgb 8.3 L (13.5-17.5) g/dL Hct 26.6 L (41-53) % MCV 74.9 L (80-100) fL MCH 23.4 L (26-34) PG MCHC 31.2 (30-36) % RDW 21.2 H (11.6-14.8) % Plt Count TNP Neut % (Auto) 73.5 (50-75) % Lymph % (Auto) 14.2 L (25-40) % Bertie % (Auto) 11.4 (3-14) % Eos % (Auto) 0.5 L (2-4) % Baso % (Auto) 0.4 (0-2) % Neut # (Auto) 7300 H (3276-1685) /uL Lymph # (Auto) 1400 (9354-8186) /uL Bertie # (Auto) 1100 H (0-900) /uL Eos # (Auto) 500 H (0-450) /uL Baso # (Auto) 400 H (0-100) /uL Total Counted Cancelled Seg Neutrophils % Cancelled Band Neutrophils % Cancelled Lymphocytes % (Manual) Cancelled Atypical Lymphs % Cancelled Monocytes % (Manual) Cancelled Eosinophils % (Manual) Cancelled Basophils % (Manual) Cancelled Metamyelocytes % Cancelled Myelocytes % Cancelled Promyelocytes % Cancelled Blast Cells % Cancelled Neutrophils # (Manual) Cancelled Differential Comment Cancelled Plasma Cells Cancelled Platelet Estimate Decreased on smear RBC Morphology See below Polychromasia 1+ H Hypochromasia 1+ H Poikilocytosis 1+ H Anisocytosis 2+ H Microcytosis 2+ H Ovalocytes 1+ H PT 14.3 H (10.1-12.7) SECONDS INR 1.3 (0.9-1.3) APTT 26 L (26.4-36.2) SECONDS D-Dimer (<230) ng/mL Sodium 136 L (137-145) mmol/L Potassium 2.6 L* (3.4-5.1) mmol/L Chloride 103 (98-107) mmol/L Carbon Dioxide 19 L (22-32) mmol/L BUN 30 H (9-20) mg/dL Creatinine 1.43 H (0.66-1.25) mg/dL Estimated GFR 48.9 L (>60) mL/min BUN/Creatinine Ratio 21.0 (6-22) Glucose 106 (80-110) mg/dL Calcium 8.7 (8.4-10.2) mg/dL Magnesium (1.6-2.3) mg/dL Total Bilirubin 1.5 H (0.2-1.3) mg/dL AST 44 (17-59) IU/L ALT 46 (<50) IU/L Alkaline Phosphatase 276 H (38-126) U/L Total Protein 6.6 (6.3-8.2) g/dL Albumin 3.4 L (3.5-5.0) g/dL Globulin 3.2 (1.7-4.1) g/dL Albumin/Globulin Ratio 1.1 (1.0-2.8) Amylase (30-110) U/L Lipase 47 (23-300) U/L SARS-CoV-2 (PCR) (Negative) 04/11/21 04/11/21 04/11/21 Range/Units 12:35 12:35 12:35 WBC (4.5-11.0) X10^3/uL RBC (4.5-5.9) X10^6/uL Hgb (13.5-17.5) g/dL Hct (41-53) % MCV (80-100) fL MCH (26-34) PG MCHC (30-36) % RDW (11.6-14.8) % Plt Count Neut % (Auto) (50-75) % Lymph % (Auto) (25-40) % Bertie % (Auto) (3-14) % Eos % (Auto) (2-4) % Baso % (Auto) (0-2) % Neut # (Auto) (7719-3711) /uL Lymph # (Auto) (0841-2579) /uL Bertie # (Auto) (0-900) /uL Eos # (Auto) (0-450) /uL Baso # (Auto) (0-100) /uL Total Counted Seg Neutrophils % Band Neutrophils % Lymphocytes % (Manual) Atypical Lymphs % Monocytes % (Manual) Eosinophils % (Manual) Basophils % (Manual) Metamyelocytes % Myelocytes % Promyelocytes % Blast Cells % Neutrophils # (Manual) Differential Comment Plasma Cells Platelet Estimate RBC Morphology Polychromasia Hypochromasia Poikilocytosis Anisocytosis Microcytosis Ovalocytes PT (10.1-12.7) SECONDS INR (0.9-1.3) APTT (26.4-36.2) SECONDS D-Dimer 2546 H (<230) ng/mL Sodium (137-145) mmol/L Potassium (3.4-5.1) mmol/L Chloride (98-107) mmol/L Carbon Dioxide (22-32) mmol/L BUN (9-20) mg/dL Creatinine (0.66-1.25) mg/dL Estimated GFR (>60) mL/min BUN/Creatinine Ratio (6-22) Glucose (80-110) mg/dL Calcium (8.4-10.2) mg/dL Magnesium 1.8 (1.6-2.3) mg/dL Total Bilirubin (0.2-1.3) mg/dL AST (17-59) IU/L ALT (<50) IU/L Alkaline Phosphatase (38-126) U/L Total Protein (6.3-8.2) g/dL Albumin (3.5-5.0) g/dL Globulin (1.7-4.1) g/dL Albumin/Globulin Ratio (1.0-2.8) Amylase 59 (30-110) U/L Lipase (23-300) U/L SARS-CoV-2 (PCR) (Negative) 04/11/21 Range/Units 14:07 WBC (4.5-11.0) X10^3/uL RBC (4.5-5.9) X10^6/uL Hgb (13.5-17.5) g/dL Hct (41-53) % MCV (80-100) fL MCH (26-34) PG MCHC (30-36) % RDW (11.6-14.8) % Plt Count Neut % (Auto) (50-75) % Lymph % (Auto) (25-40) % Bertie % (Auto) (3-14) % Eos % (Auto) (2-4) % Baso % (Auto) (0-2) % Neut # (Auto) (9481-6563) /uL Lymph # (Auto) (9588-0640) /uL Bertie # (Auto) (0-900) /uL Eos # (Auto) (0-450) /uL Baso # (Auto) (0-100) /uL Total Counted Seg Neutrophils % Band Neutrophils % Lymphocytes % (Manual) Atypical Lymphs % Monocytes % (Manual) Eosinophils % (Manual) Basophils % (Manual) Metamyelocytes % Myelocytes % Promyelocytes % Blast Cells % Neutrophils # (Manual) Differential Comment Plasma Cells Platelet Estimate RBC Morphology Polychromasia Hypochromasia Poikilocytosis Anisocytosis Microcytosis Ovalocytes PT (10.1-12.7) SECONDS INR (0.9-1.3) APTT (26.4-36.2) SECONDS D-Dimer (<230) ng/mL Sodium (137-145) mmol/L Potassium (3.4-5.1) mmol/L Chloride (98-107) mmol/L Carbon Dioxide (22-32) mmol/L BUN (9-20) mg/dL Creatinine (0.66-1.25) mg/dL Estimated GFR (>60) mL/min BUN/Creatinine Ratio (6-22) Glucose (80-110) mg/dL Calcium (8.4-10.2) mg/dL Magnesium (1.6-2.3) mg/dL Total Bilirubin (0.2-1.3) mg/dL AST (17-59) IU/L ALT (<50) IU/L Alkaline Phosphatase (38-126) U/L Total Protein (6.3-8.2) g/dL Albumin (3.5-5.0) g/dL Globulin (1.7-4.1) g/dL Albumin/Globulin Ratio (1.0-2.8) Amylase (30-110) U/L Lipase (23-300) U/L SARS-CoV-2 (PCR) Negative (Negative) Discharge Plan Departure Patient Disposition: Home Clinical Impression: Hypokalemia, Skin breakdown Cholelithiasis Qualifiers: Cholelithiasis location: gallbladder Cholecystitis presence: without cholecystitis Biliary obstruction: without biliary obstruction Qualified Code(s): K80.20 - Calculus of gallbladder without cholecystitis without obstruction Abdominal pain Qualifiers: Abdominal location: right upper quadrant Qualified Code(s): R10.11 - Right upper quadrant pain Anemia Qualifiers: Anemia type: unspecified type Qualified Code(s): D64.9 - Anemia, unspecified Instructions: Gallstones (Alternative Therapy), Anemia, DI for Pressure Injuries, DI for Gallstones, DI for Abdominal Pain-Adult Activity Restrictions/Additional Instructions: Thank you for trusting us with your care today As discussed, your ultrasound is concerning for gallstones, but no indications of acute gallbladder infection You are anemic, but this correlates with your labs from the outside facility As discussed, your case is complicated and you need follow-up with primary care provider as well as oncologist. I suggest follow-up in 24-72 hours. Please call your primary care provider tomorrow. You need to have your potassium rechecked. Given that your potassium prescription was never filled, I sent a week's worth to [facility] in [place] I also sent prescriptions of pain and nausea medicine You have been prescribed narcotic medications. While on these medications you cannot drive or operate heavy machinery. Additionally you cannot sign legal documents or perform any duties such as this. 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 Your imaging is also concerning for esophageal wall thickening, nodes, possible cirrhosis, a large spleen, mild aortic aneurysm, and diffuse pulmonary fibrosis. Please come back to the emergency department for any acute concerns. This includes high fevers, inability keep down fluids etcetera I have included information on gallstones. Dietary changes can be beneficial. This includes low-fat diet. I also sent in a prescription for but paste. This can help with the breakdown on your backside. Prescriptions: New potassium chloride 20 mEq tablet extended release 40 meq PO DAILY 7 Days Qty: 14 RF: 0 hydrocodone-acetaminophen 5-325 mg tablet 1 tab PO Q4-6H PRN (Reason: pain) Qty: 10 RF: 0 ondansetron 4 mg tablet,disintegrating 4 mg PO Q6H PRN (Reason: nausea and vomiting) Qty: 20 RF: 0 zinc oxide [B[place]reauxs Butt Paste] 40 % ointment 1 applic topical 4-6XD PRN (Reason: skin irritation) Qty: 56 RF: 0 Referrals: Tiffani Luna MD [Primary Care Provider] - <Sujit Corley, - Last Filed: 04/11/21 20:08> Cosign ED Attending Cosignature Attestation: Dr Corley Co-Sign Statement: I was available for consultation during this patient's emergency department visit. This chart is signed by myself for administrative purposes only. I did not have direct contact with this patient during this visit. They were seen independently by the APC.
[2021-04-11 15:18] LABS: COVID19 - ADMIT (NP swab/PCR) Negative (Negative)
[2021-04-11 15:25] VITALS: BP 109/56; PULSE 102; RESP 30; O2SAT 98
--- NOTE | 2021-04-11 15:27 | DI.US.S_ITS ---
PROCEDURE: US ABDOMEN LIMITED INDICATIONS: RIGHT UPPER QUADRANT PAIN. GALLSTONES. TECHNIQUE: Real-time focused scanning was performed of the abdomen, with image documentation. COMPARISON: [facility], CT, CT ABDOMEN PELVIS W CON, 04/11/2021, 14:13. FINDINGS: There multiple mobile gallstones in the gallbladder. There is no gallbladder wall thickening or fluid around the gallbladder or pain on examination. There is gallbladder distention. No dilated ducts. Common hepatic duct measures 1.9 mm. IMPRESSION: Cholelithiasis without evidence of acute cholecystitis. Dictated by: Felice Sewell M.D. on 04/11/2021 at 16:25 Approved by: Felice Sewell M.D. on 04/11/2021 at 16:27
[2021-04-11] MEDS: SODIUM CHLORIDE 0.9% 1,000 ML 1000 ML IV (17:37)
[2021-04-11] MEDS: POTASSIUM CHLORIDE 20 MEQ TAB 40 MEQ PO (17:37)
[2021-04-11 17:43] VITALS: BP 141/58; PULSE 111; RESP 18; O2SAT 97
[2021-04-11 19:04] VITALS: BP 120/56; PULSE 106; RESP 18; O2SAT 99
[2021-04-11] MEDS: HYDROCODONE/ACET 5/325 TABLET 1 TAB PO (19:07)
[2021-04-11] MEDS: ONDANSETRON 4 MG ODT SL (19:08)
[2021-04-11 20:11] VITALS: BP 96/50; PULSE 89; RESP 19; O2SAT 100
== END 2021-04-11 20:13 | disposition home or self-care (01) ==
PROVIDERS: Emergency Medicine; Emergency Provider Nurse Practitioner Family; PCP Internal Medicine
DX: E87.6 Hypokalemia (principal); K80.20 Calculus of gallbladder without cholecystitis without obstruction; R10.11 Right upper quadrant pain; D64.9 Anemia, unspecified; R23.8 Other skin changes; Z20.822 Contact with and (suspected) exposure to COVID-19
CPT/HCPCS: 36415; 71275; 74177; 76705; 80053; 82150; 83690; 83735; 85025; 85379; 85610; 85730; 87635; 96365; 96366; 99284; C9803